=== PATIENT | female | born 1995 | race Caucasian/White ===

== ENCOUNTER 2018-02-03 11:03 | Emergency (ER) | payer OTHER ==
[2018-02-03 11:12] VITALS: BP 127/73
[2018-02-03] MEDS: DEXAMETHASONE 10 MG/ML VIAL PO STA (11:33)
--- NOTE | 2018-02-03 11:33 | ED Physician Documentation ---
PD HPI HEENT - Stated complaint Stated Complaint: HEAD CONGESTION - Chief complaint Chief Complaint: Heent - History obtained from History obtained from: Patient - History of Present Illness Timing - onset: How many days ago (3) Timing - duration: Days (3) Timing - details: Gradual onset, Still present Location: Right ear, Sinuses Improves: Medication Worsens: Swalllowing Associated symptoms: Congestion, Rhinorrhea, Cough Similar symptoms before: Has not had sx before Recently seen: Not recently seen - Additional information Additional information: 23-year-old female was sick a week ago with flulike symptoms when she improved with that and subsequently over the past 3 days she has had a return or increase in symptoms with a lot of postnasal drainage of thick phlegm. She has pain and pressure in her sinuses and pain and pressure in her ears. Review of Systems Constitutional: denies: Fever Eyes: denies: Decreased vision Ears: reports: Ear pain Nose: reports: Rhinorrhea / runny nose, Congestion Throat: denies: Sore throat Cardiac: denies: Chest pain / pressure, Palpitations Respiratory: reports: Cough. denies: Dyspnea GI: denies: Abdominal Pain, Nausea, Vomiting : denies: Dysuria PD PAST MEDICAL HISTORY - Present Medications Home Medications: Ambulatory Orders Medication Instructions Recorded Confirmed Azithromycin [Zithromax] 250 mg PO DAILY #6 tablet 02/03/18 Minocycline HCl [Minocycline HCl 02/03/18 ER] - Allergies Allergies/Adverse Reactions: Allergies Allergy/AdvReac Type Severity Reaction Status Date / Time No Known Drug Allergies Allergy Verified 02/03/18 11:12 - Social History Does the pt smoke?: No Smoking Status: Never smoker PD ED PE NORMAL - Vitals Vital signs reviewed: Yes - General General: Alert and oriented X 3, No acute distress, Well developed/nourished - HEENT HEENT: Atraumatic, PERRL, EOMI, Other (There is inflammation to the right TM with rounding of landmarks the left is mildly inflamed without distortion of landmarks. The pharynx has 1+ tonsils with exudate. There is point tenderness to the maxillary sinuses bilaterally.) - Neck Neck: Supple, no meningeal sign, No bony TTP - Cardiac Cardiac: RRR, No murmur - Respiratory Respiratory: No respiratory distress, Clear bilaterally - Abdomen Abdomen: Soft, Non tender - Back Back: No CVA TTP, No spinal TTP - Derm Derm: Normal color, Warm and dry, No rash - Extremities Extremities: No deformity, No edema - Neuro Neuro: Alert and oriented X 3, No motor deficit, No sensory deficit, Normal speech Eye Opening: Spontaneous Motor: Obeys Commands Verbal: Oriented GCS Score: 15 - Psych Psych: Normal mood, Normal affect Results - Vitals Vitals: Vital Signs - 24 hr 02/03/18 11:09 Temperature 36.5 C Heart Rate 82 Respiratory 16 Rate Blood Pressure 127/73 O2 Saturation 100 Oxygen O2 Source Room air PD MEDICAL DECISION MAKING - ED course Complexity details: considered differential, d/w patient ED course: 23-year-old female with bimodal illness has otitis on exam here today she is administered dexamethasone 10 mg orally and we will place her on some azithromycin. Departure - Departure Disposition: 01 Home, Self Care Clinical Impression: Otitis media Qualifiers: Otitis media type: suppurative Chronicity: acute Laterality: bilateral Recurrence: not specified as recurrent Spontaneous tympanic membrane rupture: without spontaneous rupture Qualified Code(s): H66.003 - Acute suppurative otitis media without spontaneous rupture of ear drum, bilateral Condition: Stable Instructions: ED Otitis Media Acute Adult Follow-Up: Mina Nettles MD [Primary Care Provider] - Prescriptions: Azithromycin [Zithromax] 250 mg PO DAILY #6 tablet
== END 2018-02-03 11:43 | disposition home or self-care (01) ==
LOC: ED 11:03
DX: H66.003 Acute suppurative otitis media without spontaneous rupture of ear drum, bilateral (principal)
CPT/HCPCS: 99283

== ENCOUNTER 2018-03-03 17:06 | Emergency (ER) | payer OTHER ==
[2018-03-03 17:37] VITALS: BP 114/69
[2018-03-03 19:12] LABS: BILIRUBIN,URINE NEGATIVE (NEGATIVE); GLUCOSE, URINE (UA) NEGATIVE (NEGATIVE); KETONES,URINE (UA) NEGATIVE (NEGATIVE); LEUKOCYTE ESTERASE, URINE NEGATIVE (NEGATIVE); NITRITE,URINE NEGATIVE (NEGATIVE); OCCULT BLOOD,URINE NEGATIVE (NEGATIVE); PROTEIN,URINE NEGATIVE (NEGATIVE); UROBILINOGEN,URINE 0.2 (NORMAL) E.U./dL (NORMAL)
[2018-03-03 19:18] LABS: CLARITY,URINE CLEAR (CLEAR)
[2018-03-03 20:13] LABS: HCG UR QUAL NEGATIVE
[2018-03-03] MEDS ORDERED: FLUCONAZOLE 100 MG TABLET PO STA (20:14)
--- NOTE | 2018-03-03 20:20 | ED Physician Documentation ---
PD HPI FEMALE - Stated complaint Stated Complaint: FEMALE - Chief complaint Chief Complaint: General - History obtained from History obtained from: Patient - History of Present Illness Timing - onset: Yesterday Timing - details: Gradual onset, Still present Associated symptoms: Pelvic pain, Vaginal discharge Similar symptoms before: Has not had sx before Recently seen: Not recently seen - Additional information Additional information: Patient is a 23 year old female with no significant past medical history who is presenting to the emergency department for vaginal itching and irritation. Patient states that the symptoms started after using a new soap. patient denies any systemic complaints. Patient is sexually active but with only one partner. Review of Systems Ten Systems: 10 systems reviewed and negative : reports: Dysuria. denies: Vaginal bleeding, Irregular menses, Missed period PD PAST MEDICAL HISTORY - Present Medications Home Medications: Ambulatory Orders Medication Instructions Recorded Confirmed Minocycline HCl 03/03/18 - Allergies Allergies/Adverse Reactions: Allergies Allergy/AdvReac Type Severity Reaction Status Date / Time No Known Drug Allergies Allergy Verified 02/03/18 11:12 - Social History Does the pt smoke?: No Smoking Status: Never smoker PD ED PE NORMAL - General General: Alert and oriented X 3, No acute distress - HEENT HEENT: Atraumatic - Cardiac Cardiac: RRR - Respiratory Respiratory: No respiratory distress - Female Female : Pt declined - Derm Derm: Normal color, Warm and dry - Extremities Extremities: No deformity - Neuro Neuro: Alert and oriented X 3 - Psych Psych: Normal mood Results - Vitals Vitals: Vital Signs - 24 hr 03/03/18 17:32 Temperature 36.6 C Heart Rate 67 Respiratory 16 Rate Blood Pressure 114/69 O2 Saturation 100 Oxygen O2 Source Room air - Labs Labs: Laboratory Tests 03/03/18 03/03/18 18:42 18:42 Urine Color YELLOW Urine Clarity CLEAR Urine pH 6.0 Ur Specific [place] 1.025 1.025 Urine Protein NEGATIVE Urine Glucose (UA) NEGATIVE Urine Ketones NEGATIVE Urine Occult Blood NEGATIVE Urine Nitrite NEGATIVE Urine Bilirubin NEGATIVE Urine Urobilinogen 0.2 (NORMAL) Ur Leukocyte Esterase NEGATIVE Ur Microscopic Review NOT INDICATED Urine Culture Comments NOT INDICATED Urine HCG, Qual NEGATIVE PD MEDICAL DECISION MAKING - ED course Complexity details: reviewed old records, reviewed results, re-evaluated patient , considered differential, d/w patient ED course: Patient was seen and examined at bedside. Patient was well appearing and in no acute distress. Patient's urine was collected and showed no signs of infection. Patient clinically had tess infection but did not want a pelvic exam at this time. patient was treated with diflucan and was stable for discharge with outpatient follow up. Departure - Departure Disposition: 01 Home, Self Care Clinical Impression: Yeast infection of the vagina Condition: Good Instructions: ED Vaginal Infec Fungal Tess Follow-Up: Mina Nettles MD [Primary Care Provider] - Within 3 Days Comments: Your symptoms today are likely being caused by a yeast infection. You were treated with the oral medication today. You can take over the counter medications (monistat) as needed for symptoms. You may return to the emergency department at any time for new, worsening or uncontrollable symptoms. Discharge Date/Time: 03/03/18 20:46
== END 2018-03-03 20:46 | disposition home or self-care (01) ==
LOC: ED 17:06
DX: B37.3 Candidiasis of vulva and vagina (principal)
CPT/HCPCS: 81003; 81025; 99283; A9270; 81001; 87086

== ENCOUNTER 2018-04-28 08:13 | Emergency (ER) | payer OTHER ==
[2018-04-28] MEDS ORDERED: SODIUM CHLORIDE 0.9% 1,000 ML IV ONE (08:55)
[2018-04-28] MEDS ORDERED: MECLIZINE 12.5 MG TABLET PO STA (08:55)
--- NOTE | 2018-04-28 08:58 | ED Physician Documentation ---
History of Present Illness - Stated complaint Stated Complaint: DIZZY/POST WISDOM TOOTH REMOVAL - Chief complaint Chief Complaint: Neuro - Additonal information Additional information: hx from pt healthy 23 AD female LMP 3 week ago had wisdom teeth removed April 20 was on amox hydrocodone and NSAID after last dose of meds 48 hr ago she feels off hard to describe exactly but having trouble concentrating, takes her a long time to accomplish basic tasks, a little off balance, dream like no fever no oral pain no cough NVD Review of Systems Constitutional: reports: Fatigue. denies: Fever, Chills Throat: denies: Dental pain / toothache (better now) Cardiac: denies: Chest pain / pressure Respiratory: denies: Dyspnea GI: denies: Abdominal Pain, Vomiting : reports: LMP (3 weeks ago) Neurologic: reports: Generalized weakness. denies: Focal weakness, Numbness, Headache, Head injury Endocrine: denies: Easy bruising / bleeding Immunocompromised: denies: Immunocompromised PD PAST MEDICAL HISTORY - Past Medical History Past Medical History: No - Past Surgical History Past Surgical History: Yes - Present Medications Home Medications: Ambulatory Orders Medication Instructions Recorded Confirmed Minocycline HCl 03/03/18 Meclizine [Antivert] 25 mg PO Q6H PRN #20 tablet 04/28/18 - Allergies Allergies/Adverse Reactions: Allergies Allergy/AdvReac Type Severity Reaction Status Date / Time No Known Drug Allergies Allergy Verified 02/03/18 11:12 - Social History Does the pt smoke?: No Smoking Status: Never smoker Does the pt drink ETOH?: No Does the pt have substance abuse?: No - Immunizations Immunizations are current?: Yes - POLST Patient has POLST: No PD ED PE NORMAL - Vitals Vital signs reviewed: Yes - General General: Alert and oriented X 3 - HEENT HEENT: PERRL, EOMI, Other (no dry socket no trismus) - Neck Neck: Supple, no meningeal sign - Respiratory Respiratory: No respiratory distress, Clear bilaterally - Abdomen Abdomen: Soft, Non tender - Derm Derm: Normal color - Extremities Extremities: No deformity - Neuro Neuro: Alert and oriented X 3, credit assessment analyst 2-12 intact, No motor deficit, Normal speech Eye Opening: Spontaneous Motor: Obeys Commands Verbal: Oriented GCS Score: 15 Results - Vitals Vitals: Vital Signs - 24 hr 04/28/18 08:23 Temperature 36.6 C Heart Rate 78 Blood Pressure 129/70 O2 Saturation 100 Oxygen O2 Source Room air - Labs Labs: Laboratory Tests 04/28/18 04/28/18 04/28/18 09:12 09:12 09:12 WBC 6.7 RBC 4.89 Hgb 11.7 L Hct 36.2 L MCV 74.0 L MCH 23.9 L MCHC 32.3 RDW 16.9 H Plt Count 246 MPV 8.6 Neut # (Auto) 4.3 Lymph # (Auto) 1.7 [place] # (Auto) 0.6 Eos # (Auto) 0.1 Baso # (Auto) 0.0 Absolute Nucleated RBC 0.00 Nucleated RBC % 0.1 Sodium 137 Potassium 3.5 Chloride 105 Carbon Dioxide 26 Anion Gap 6.0 BUN 10 Creatinine 0.5 Estimated GFR (MDRD) 153 Glucose 89 Calcium 9.0 Serum HCG, Qual NEGATIVE Urine Color Urine Clarity Urine pH Ur Specific [place] Urine Protein Urine Glucose (UA) Urine Ketones Urine Occult Blood Urine Nitrite Urine Bilirubin Urine Urobilinogen Ur Leukocyte Esterase Ur Microscopic Review Urine Culture Comments 04/28/18 09:15 WBC RBC Hgb Hct MCV MCH MCHC RDW Plt Count MPV Neut # (Auto) Lymph # (Auto) [place] # (Auto) Eos # (Auto) Baso # (Auto) Absolute Nucleated RBC Nucleated RBC % Sodium Potassium Chloride Carbon Dioxide Anion Gap BUN Creatinine Estimated GFR (MDRD) Glucose Calcium Serum HCG, Qual Urine Color YELLOW Urine Clarity CLEAR Urine pH 7.0 Ur Specific [place] 1.015 Urine Protein NEGATIVE Urine Glucose (UA) NEGATIVE Urine Ketones NEGATIVE Urine Occult Blood NEGATIVE Urine Nitrite NEGATIVE Urine Bilirubin NEGATIVE Urine Urobilinogen 0.2 (NORMAL) Ur Leukocyte Esterase NEGATIVE Ur Microscopic Review NOT INDICATED Urine Culture Comments NOT INDICATED PD MEDICAL DECISION MAKING - ED course ED course: pt received SME nl VS nl labs except mild anemia not unusual for menstruating f feels better after IVF and meclizine has fup at [facility] feel stable and safe for dc - Sepsis Event Vital Signs: Vital Signs - 24 hr 04/28/18 08:23 Temperature 36.6 C Heart Rate 78 Blood Pressure 129/70 O2 Saturation 100 Oxygen O2 Source Room air Departure - Departure Disposition: 01 Home, Self Care Clinical Impression: Weakness Condition: Good Follow-Up: VICTOR M Trent [Provider Group] Prescriptions: Meclizine [Antivert] 25 mg PO Q6H PRN #20 tablet PRN Reason: Dizziness Comments: All your labs are fine. You were given IV fluids as well as meclzine for the off balance sensation I am not certain what is causing the symptoms but I suspect it is the medications you were taking after your surgery Recommend no work today, rest, drink fluids Follow up at [facility] tomorrow morning for a recheck and duty status Forms: Activity restrictions
[2018-04-28 09:21] LABS: BASOPHILS % (AUTO) 0.7 %; EOSINOPHILS # (AUTO) 0.1 10^3/uL (0.0-0.7); EOSINOPHILS % (AUTO) 1.1 %; HGB - HEMOGLOBIN 11.7 g/dL (12.0-16.0); LYMPHOCYTES # (AUTO) 1.7 10^3/uL (1.5-3.5); LYMPHOCYTES % (AUTO) 24.9 %; MEAN CORPUSCULAR HEMOGLOBIN 23.9 pg (27.0-31.0); MEAN CORPUSCULAR HGB CONC 32.3 g/dL (32.0-36.0); MEAN PLATELET VOLUME 8.6 fL (7.9-10.8); MONOCYTES # (AUTO) 0.6 10^3/uL (0.0-1.0); MONOCYTES % (AUTO) 9.6 %; NEUTROPHILS # (AUTO) 4.3 10^3/uL (1.5-6.6); NEUTROPHILS % (AUTO) 63.7 %; PLT - PLATELET COUNT 246 10^3/uL (130-450); RED BLOOD COUNT 4.89 10^6/uL (4.20-5.40); RED CELL DISTRIBUTION WIDTH 16.9 % (12.0-15.0); WHITE BLOOD COUNT 6.7 x10^3/uL (4.8-10.8)
[2018-04-28 09:27] LABS: BILIRUBIN,URINE NEGATIVE (NEGATIVE); GLUCOSE, URINE (UA) NEGATIVE (NEGATIVE); KETONES,URINE (UA) NEGATIVE (NEGATIVE); LEUKOCYTE ESTERASE, URINE NEGATIVE (NEGATIVE); NITRITE,URINE NEGATIVE (NEGATIVE); OCCULT BLOOD,URINE NEGATIVE (NEGATIVE); PROTEIN,URINE NEGATIVE (NEGATIVE); UROBILINOGEN,URINE 0.2 (NORMAL) E.U./dL (NORMAL)
[2018-04-28 09:31] LABS: CREATININE 0.5 mg/dL (0.4-1.0)
[2018-04-28 09:32] LABS: CLARITY,URINE CLEAR (CLEAR)
[2018-04-28 09:47] LABS: HCG,QUALITATIVE BLOOD NEGATIVE
[2018-04-28 10:45] VITALS: BP 118/73
== END 2018-04-28 10:30 | disposition home or self-care (01) ==
LOC: ED 08:13
DX: R53.1 Weakness (principal)
CPT/HCPCS: 36415; 80048; 81003; 84703; 85025; 99283; A9270; 81001; 87086